=== PATIENT | male | born 1960 | race Caucasian/White ===

== ENCOUNTER 2016-12-18 06:38 | Emergency (ER) | payer OTHER ==
[~2016-12-18] VITALS: Ht 175.3 cm; Wt 86.2 kg
[2016-12-18 06:44] VITALS: BP_SYST 140
[2016-12-18] MEDS ORDERED: AMOXICILLIN 500 MG CAPSULE PO ONE (07:15)
[2016-12-18] MEDS ORDERED: IBUPROFEN 600 MG TABLET PO ONE (07:15)
[2016-12-18 07:31] VITALS: BP_SYST 140
== END 2016-12-18 07:31 | disposition home or self-care (01) ==
LOC: SED 06:38
DX: H66.91 Otitis media, unspecified, right ear (principal); E78.5 Hyperlipidemia, unspecified; I10 Essential (primary) hypertension
CPT/HCPCS: 99283